=== PATIENT | female | born 1970 | race Caucasian/White ===

== ENCOUNTER 2021-06-15 05:23 | Day surgery (SDC) | payer BC, OTHER ==
[2021-06-15 10:17] VITALS: BMI 22.1
[2021-06-15 11:22] VITALS: TEMP 97.8
[2021-06-15 11:50] VITALS: BP 103/50; PULSE 69
== END 2021-06-15 12:06 | disposition home or self-care (01) ==
LOC: JASU-ENDO 05:23
PROVIDERS: ATTEND Internal Medicine Gastroenterology
PROC: 0DBN8ZX Excision of Sigmoid Colon, Via Natural or Artificial Opening Endoscopic, Diagnostic (ICD-10-PCS; 2021-06-15)
PROC: 0DBM8ZX Excision of Descending Colon, Via Natural or Artificial Opening Endoscopic, Diagnostic (ICD-10-PCS; principal; 2021-06-15 11:00)
DX: Z12.11 Encounter for screening for malignant neoplasm of colon (principal); D12.4 Benign neoplasm of descending colon; D12.5 Benign neoplasm of sigmoid colon; K59.89 Other specified functional intestinal disorders
CPT/HCPCS: 81025; 88305-TC

== ENCOUNTER 2021-11-22 03:46 | Observation (INO) | payer BC ==
[2021-11-22 04:02] VITALS: BMI 22.0
[2021-11-22] MEDS ORDERED: SODIUM CHLORIDE 0.9% 500 ML INFUS.BAG IV ONE (04:13)
[2021-11-22] MEDS ORDERED: ACETAMINOPHEN 1000 MG/100 ML BAG IVPB ONE (04:13)
[2021-11-22] MEDS ORDERED: ACETAMINOPHEN INJECTION 100 ML IVPB ONE (04:40)
[2021-11-22 05:09] LABS: BASO % 1.2 % (0-2.0); EOS % 1.4 % (0-4.5); HEMATOCRIT 28.7 % (32.4-45.2); HEMOGLOBIN 8.7 GM/dL (10.7-15.3); LYMPH % 30.5 % (8-40); MCH 22.9 pg (25.7-33.7); MCHC 30.3 g/dl (32.0-36.0); MEAN CELL VOLUME 75.8 fl (80-96); MONO % 6.7 % (3.8-10.2); NEUT % 60.2 % (42.8-82.8); PLATELET COUNT 249 10^3/uL (134-434); RBC 3.78 M/mm3 (3.60-5.2); RDW 15.2 % (11.6-15.6); WHITE BLOOD COUNT 5.3 K/mm3 (4.0-10.0)
[2021-11-22 05:19] LABS: INR 0.91 (0.83-1.09); PROTHROMBIN TIME (PATIENT) 10.5 SEC (9.7-13.0)
[2021-11-22 05:28] LABS: ALBUMIN 3.8 g/dl (3.4-5.0); BLOOD UREA NITROGEN 22.6 mg/dL (7-18); CALCIUM 9.1 mg/dL (8.5-10.1); MAGNESIUM 2.2 mg/dL (1.8-2.4)
[2021-11-22 05:32] LABS: CREATININE 0.8 mg/dL (0.55-1.3)
[2021-11-22 05:33] LABS: BILIRUBIN,TOTAL 0.1 mg/dL (0.2-1); TOT PROT 7.4 g/dl (6.4-8.2)
[2021-11-22] MEDS ORDERED: DIPHTH,PERTUSS(ACELL),TET 0.5 ML DISP.SYRIN IM ONE ×2 (05:45→06:29)
[2021-11-22 06:58] LABS: EPI CELLS 18 /uL (0-25.1); HYALINE CASTS 0 /uL (0-3.1); PH,URINE 7.5 (5.0-8.0); URINE APPEARANCE CLEAR; URINE BACTERIA 487 /uL (0-1359); URINE BILIRUBIN NEGATIVE (NEGATIVE); URINE COLOR RED; URINE GLUCOSE (UA) NEGATIVE (NEGATIVE); URINE KETONE NEGATIVE (NEGATIVE); URINE LEUK ESTERASE TRACE (NEGATIVE); URINE NITRITE NEGATIVE (NEGATIVE); URINE PROTEIN 1+ (NEGATIVE); URINE UROBILINOGEN 0.2 mg/dL (0.2-1.0); URINE WBC 24 /uL (0-25.8)
[2021-11-22 08:42] LABS: URINE RBC 687.1 /uL (0-23.9)
[2021-11-22 08:43] LABS: YEAST NO SEEN (NEGATIVE)
[2021-11-22] MEDS ORDERED: DESVENLAFAXINE SUCCINATE 100 MG PO SCH (10:00)
[2021-11-22] MEDS ORDERED: ASENAPINE 5 MG TAB SL SCH (10:00)
[2021-11-22 13:26] LABS: IRON SERUM 16 ug/dL (50-175); TOTAL IRON BINDING CAPACITY 423 ug/dL (250-450)
[2021-11-23 01:19] VITALS: RESP 18
[2021-11-23 07:19] LABS: BASO % 1.3 % (0-2.0); EOS % 1.2 % (0-4.5); LYMPH % 37.8 % (8-40); MCH 22.8 pg (25.7-33.7); MCHC 30.7 g/dl (32.0-36.0); MEAN CELL VOLUME 74.5 fl (80-96); MEAN PLT VOLUME 9.9 fl (7.5-11.1); MONO % 6.5 % (3.8-10.2); NEUT % 53.2 % (42.8-82.8); PLATELET COUNT 237 10^3/uL (134-434); RBC 3.49 M/mm3 (3.60-5.2); RDW 14.9 % (11.6-15.6); WHITE BLOOD COUNT 4.8 K/mm3 (4.0-10.0)
[2021-11-23 07:50] LABS: ALBUMIN 3.4 g/dl (3.4-5.0); CALCIUM 8.5 mg/dL (8.5-10.1)
[2021-11-23 07:54] LABS: CREATININE 0.7 mg/dL (0.55-1.3)
[2021-11-23 07:56] LABS: BILIRUBIN,TOTAL 0.4 mg/dL (0.2-1); TOT PROT 6.4 g/dl (6.4-8.2)
[2021-11-23] MEDS ORDERED: FERROUS GLUCONATE 324 MG TAB (FP) PO SCH ×2 (10:00→13:50)
[2021-11-23] MEDS ORDERED: LIOTHYRONINE SODIUM 5 MCG TABLET PO SCH ×2 (10:00→13:28)
[2021-11-23 11:22] LABS: CHOLESTEROL 231 mg/dL (50-200); HDL CHOLESTEROL 72 mg/dL (40-60); LDL CHOLESTEROL (ONLY DFH) 146 mg/dl (5-100); TRIGLYCERIDES 63 mg/dL (0-150)
[2021-11-23] MEDS ORDERED: DOCUSATE SODIUM 100 MG CAPSULE (FP) PO PRN (13:59)
[2021-11-23] MEDS ORDERED: FERROUS SO4 325 MG TABLET (FP) ONE (15:51)
[2021-11-23 15:59] VITALS: BP 111/63; PULSE 69; TEMP 100
[2021-11-24] MEDS ORDERED: LIOTHYRONINE SODIUM 5 MCG TABLET PO SCH (07:00)
== END 2021-11-23 16:09 | disposition home or self-care (01) ==
LOC: JER 03:46 → JERBED 04:13
PROVIDERS: ADMIT Internal Medicine; ATTEND Internal Medicine
PROC: 3E0234Z Introduction of Serum, Toxoid and Vaccine into Muscle, Percutaneous Approach (ICD-10-PCS; principal; 2021-11-22)
PROC: 3E033NZ Introduction of Analgesics, Hypnotics, Sedatives into Peripheral Vein, Percutaneous Approach (ICD-10-PCS; 2021-11-22)
PROC: 3E0337Z Introduction of Electrolytic and Water Balance Substance into Peripheral Vein, Percutaneous Approach (ICD-10-PCS; 2021-11-22)
DX: S01.81XA Laceration without foreign body of other part of head, initial encounter (principal); F31.9 Bipolar disorder, unspecified; Z91.041 Radiographic dye allergy status; D64.9 Anemia, unspecified; R55 Syncope and collapse; E03.9 Hypothyroidism, unspecified; R06.02 Shortness of breath; Z23 Encounter for immunization; W00.0XXA Fall on same level due to ice and snow, initial encounter; Y93.89 Activity, other specified; Y92.002 Bathroom of unspecified non-institutional (private) residence as the place of occurrence of the external cause
CPT/HCPCS: 0241U-QW; 36415; 70450-TC; 71045-TC-FY; 72125-TC; 80053; 80061; 80178; 81003; 82550; 82728; 82962; 83036; 83540; 83550; 83735; 84439; 84443; 84484; 84703; 85025; 85610; 85730; 87077; 87086; 90715; 93005; 93010; 93306-TC; 93880-TC; 99285-25; G0378

== ENCOUNTER 2021-11-29 09:22 | Emergency (ER) | payer BC ==
[2021-11-29 09:43] VITALS: BP 135/75; PULSE 74; RESP 16; TEMP 98.6; BMI 22.8
== END 2021-11-29 09:41 | disposition home or self-care (01) ==
LOC: FER 09:22
DX: Z48.02 Encounter for removal of sutures (principal)
CPT/HCPCS: 99281-25